=== PATIENT | male | born 1950 ===

== ENCOUNTER 2024-03-09 11:35 | Emergency (ER) | payer OTHER, SELFPAY ==
[2024-03-09] VITALS (8 sets, daily range): BP systolic 129–156; BP diastolic 70–100; PULSE 79–93; RESP 18–22; TEMP 36.5; O2SAT 96–98; BMI 31.8
--- NOTE | ~2024-03-09 | CT_ITS ---
EXAMINATION: CT HEAD WITHOUT IV CONTRAST STROKE CLINICAL INFORMATION: Left-sided weakness. COMPARISON: None. TECHNIQUE: Contiguous axial imaging was performed from the skull base to vertex without intravenous contrast. Sagittal and coronal reformatted images were obtained. This CT examination was performed using dose optimization techniques as appropriate, variously including the following: * Automated exposure control * Adjustment of mA and/or kV according to patient size (this includes techniques or standardized protocols for targeted exams where dose is matched to indication/reason for exam; i.e. extremities or head) Use of iterative reconstruction technique DLP: 892 mGy-cm FINDINGS: No acute osseous or soft tissue abnormality. The mastoid air cells and visualized portions of the paranasal sinuses are well aerated. Parenchymal hypodensity and loss of ochoa-white matter differentiation in the right temporal lobe is concerning for an evolving acute infarct. There is no evidence of acute intracranial hemorrhage. No abnormal mass effect or midline shift is seen. No extra-axial fluid collections are identified. No hydrocephalus. Proportional prominence of the ventricles and sulcal spaces related to volume loss. Confluent periventricular and deep white matter hypoattenuation with asymmetric involvement of the right cerebral hemisphere, is most consistent with severe small vessel ischemic changes. Chronic left thalamic lacunar infarct. CT/CT head for stroke IMPRESSION: 1. Parenchymal hypodensity and loss of ochoa-white matter differentiation in the right temporal lobe is concerning for an evolving acute infarct. No evidence of intracranial hemorrhage. 2. Generalized cerebral volume loss. Confluent supratentorial white matter hypodensity with asymmetric involvement of the right cerebral hemisphere, presumably reflecting sequela of chronic microangiopathy. There is a chronic left thalamic lacunar infarct. Above impression was communicated to Dr Uribe on 03/09/2024 12:03 PM. Electronically signed by: Emmanuel Connors MD 03/09/2024 12:11 PM EDT
--- NOTE | ~2024-03-09 | XR_ITS ---
EXAMINATION: XR CHEST CLINICAL INFORMATION: Stroke COMPARISON: None available. TECHNIQUE: Frontal view of the chest was obtained. FINDINGS: Bilateral low lung volumes. Small bilateral pleural effusions, right greater than left with subjacent atelectasis. Chronic appearing reticular interstitial lung markings, though underlying infectious/inflammatory radiology not excluded. No pneumothorax. Trachea is midline. Cardiomediastinal silhouette is not enlarged. Osseous structures are intact. Soft tissues are unremarkable. XR/XR chest 1V IMPRESSION: 1. Bilateral low lung volumes. 2. Small bilateral pleural effusions, right greater than left with subjacent atelectasis. 3. Chronic appearing reticular and interstitial lung markings, though underlying infectious/inflammatory radiology not excluded. Electronically signed by: Jj Garcia MD 03/09/2024 01:43 PM EDT
--- NOTE | ~2024-03-09 | CT_ITS ---
EXAMINATION: CT ANGIOGRAM HEAD CT ANGIOGRAM NECK CLINICAL INFORMATION: left-sided weakness COMPARISON: Same day noncontrast head CT TECHNIQUE: Initial noncontrast professor of english imaging of the head and neck was performed. Comparison is made with noncontrast head CT from earlier today. Test bolus sequences followed by intravenous administration 70 mL of Omnipaque 350. Helical imaging was performed in the axial plane from the aortic arch to the skull vertex. Delayed postcontrast imaging of the head was also performed. The data was processed at the office technologist workstation for generation of MIP sequences. Angled MIPs and volume rendered reformatted images were also generated at an offline 3D workstation. Stenoses are assessed in accordance with NASCET criteria unless otherwise indicated. DLP: 18 23 mGy-cm This CT examination was performed using dose optimization techniques as appropriate, variously including the following: *Automated exposure control. *Adjustment of mA and/or kV according to patient size (this includes techniques or standardized protocols for targeted exams where dose is matched to indication/reason for exam; i.e. extremities or head). *Use of iterative reconstruction technique. FINDINGS: CT Head: Please refer to report from immediate preceding noncontrast head CT for full details. Redemonstration of suspected evolving acute infarct right temporal lobe. No abnormal intracranial enhancement. CT Neck: The thyroid gland and remaining cervical soft tissues are within normal limits. Multilevel cervical spondylosis. CT Upper Chest: Evaluation of the lung apices is limited due to motion artifact but there is suggestion of underlying pulmonary fibrosis with subpleural reticulation and honeycombing. Dense sclerosis of the head of the left sixth rib is nonspecific but most likely represents a bone island. Prominent but nonpathologically enlarged superior mediastinal lymph nodes. Coronary artery calcifications. Neck CTA: Aortic Arch: Normal contour and caliber. Two vessel branching pattern of the arch with left common carotid artery arising from the brachiocephalic trunk. Great Vessel Origins: No significant stenosis of the branch origins. Right Common Carotid Artery: Fibrofatty atherosclerotic plaque involving the mid right common carotid artery with less than 50% luminal stenosis. Cervical Right Internal Carotid Artery: Mild calcific atherosclerotic disease of the carotid bulb and proximal internal carotid artery without flow-limiting stenosis. Left Common Carotid Artery: No focal stenosis or occlusion. Cervical Left Internal Carotid Artery: Fibrofatty predominantly macroscopic plaque at the left carotid bifurcation and proximal left ICA with less than 50% proximal ICA narrowing Cervical Right Vertebral Artery: No focal stenosis or occlusion. Cervical Left Vertebral Artery: No focal stenosis or occlusion. Brain CTA: Intracranial Internal Carotid Arteries: Calcific atherosclerotic disease of the intracranial internal carotid arteries without occlusion or flow-limiting stenosis. Right Anterior Cerebral Artery: Normal A1 segment. Normal opacification of the distal ISA segments. Left Anterior Cerebral Artery: Normal A1 segment. Normal opacification of the distal ISA segments. Anterior Communicating Artery: Normal. Right Middle Cerebral Artery: The right M1 origin is patent with normal appearance of the proximal and mid M1 segment. There is a near occlusive stenosis of the distal right M1 segment with immediate vessel reconstitution of the M2 branches and distal MCA complex. The distal right MCA complex remains patent appears diffusely diminutive in caliber throughout with poor contrast filling. Left Middle Cerebral Artery: Mild narrowing of the M1 segment. Normal arborization of the distal segments. Right Vertebral Artery: Normal V4 segment. Left Vertebral Artery: Moderate to high-grade focal stenosis of the distal intradural left vertebral artery at the vertebrobasilar junction. Basilar Artery: No high-grade stenosis or occlusion. Mild stenosis of the distal basilar artery just proximal to the basilar tip. Normal appearance of the proximal superior cerebellar arteries. There is junctional prominence of the basilar tip without discrete saccular aneurysm formation. Right Posterior Cerebral Artery: Normal P1 segment. Normal opacification of the distal PACKAGE LINE OPERATOR segments. Left Posterior Cerebral Artery: Mild to moderate stenosis of the left P1 origin. Normal opacification of the distal PACKAGE LINE OPERATOR segments. Normal opacification of the superior sagittal, straight, transverse, and sigmoid sinuses. CT/CT angio head neck stroke IMPRESSION: 1. High-grade near occlusive stenosis of the distal right M1 segment with immediate vessel reconstitution but diffusely diminished caliber and poor contrast filling of the right MCA complex. 2. Moderate to high-grade focal stenosis of the intradural left vertebral artery at the vertebrobasilar junction. 3. No significant arterial narrowing in the neck. 4. Suggestion of pulmonary fibrosis at the lung apices with subpleural reticulation and honeycombing. Impression #[address] Uribe on 03/09/2024 12:03 PM. Electronically signed by: Emmanuel Connors MD 03/09/2024 12:30 PM EDT
--- NOTE | 2024-03-09 11:42 | ECG_ITS ---
Test Reason : STROKE Blood Pressure : / mmHG Vent. Rate : 090 BPM Atrial Rate : 090 BPM P-R Int : 144 ms QRS Dur : 086 ms QT Int : 386 ms P-R-T Axes : 012 -28 067 degrees QTc Int : 472 ms Sinus rhythm with marked sinus arrhythmia with occasional Premature ventricular complexes Inferior infarct , age undetermined Abnormal ECG No previous ECGs available Referred By: Fina Uribe Electronically Signed By:ANUP ALVAREZ
[2024-03-09] MEDS: iohexoL 350 MG/ML 100 ML INFUS..BTL IV (11:55)
[2024-03-09 12:03] LABS: Prothrombin Time Whole Bld POC 15.1 sec (11.1-13.5); ~PT, ~INR - Anti Coag Clinic 1.3 (0.9-1.1)
[2024-03-09 12:06] LABS: Glucose, Whole Blood 163 mg/dL (60-115)
--- NOTE | 2024-03-09 12:08 | PC.NURSE ---
Maria Teresa at [facility] saw patient at 9:30am to give oxycodone. baseline. was ableto suqeeze ith left hand 20 reps for therapy.
[2024-03-09 12:09] LABS: Basophils Absolute Auto 0.1 X10*3/uL (0.0-0.2); Basophils Percent Auto 0.2 % (0-2); Eosinophils Absolute Auto 0.1 X10*3/uL (0.0-0.4); Eosinophils Percent Auto 0.4 % (0-4); Hematocrit 40.8 % (42.0-52.0); Hemoglobin 13.8 g/dl (14.0-18.0); Imm Gran Abs Auto 0.25 X10*3/uL (0.00-0.03); Lymphocytes Absolute Auto 2.8 X10*3/uL (1.2-4.9); MANUAL DIFF FLAG SCAN; Mean Corpuscular HGB Conc 33.8 g/dl (31.0-36.0); Mean Corpuscular Hemoglobin 30.5 pg (27.0-33.0); Mean Corpuscular Volume 90.1 fL (80.0-98.0); Mean Platelet Volume 12.2 fL (9.4-12.4); Monocytes Absolute Auto 1.5 X10*3/uL (0.1-1.2); Monocytes Percent Auto 5.8 % (2-11); Neutrophils Absolute Auto 20.7 x10*3/uL (2.0-8.3); Neutrophils Percent Auto 81.6 % (45-73); Platelet Count 243 X10*3/uL (160-400); Red Blood Count 4.53 X10*6/uL (4.60-5.80); SCAN SMEAR FLAG 1; White Blood Count 25.4 X10*3/uL (4.8-10.8)
[2024-03-09 12:15] LABS: INTERNATIONAL NORM RATIO 1.1 (0.9-1.1); Prothrombin Time 13.6 SEC (11.1-13.3)
[2024-03-09 12:18] LABS: Partial Thromboplastin Time 30.7 SEC (26.0-36.8)
--- NOTE | 2024-03-09 12:20 | PC.NURSE ---
TNK is mixed at Dr Lofton's request but now held per Doc Elmogy d/t info from Daughter who is at bedside. PT has no ability to move LUE and LLE. speech is muffled but mostly able to understand. left isded droop noted. very dry tongue and mucous membranes. daughter states previous stroke was feb 26
[2024-03-09 12:24] LABS: Alanine Aminotransferase 12 U/L (0-40); Albumin Level 2.9 g/dL (3.5-5.0); Alkaline Phosphatase 60 U/L (39-117); Anion Gap 14 (12-20); Aspartate Amino Transferase 17 U/L (5-37); Bilirubin Direct 0.4 mg/dL (0.0-0.5); Bilirubin Total 0.9 mg/dL (0.0-1.0); Blood Urea Nitrogen 119 mg/dL (9-16); Calcium 8.6 mg/dL (8.4-10.2); Carbon Dioxide 23 mmol/L (22-29); Chloride 114 mmol/L (96-108); Estimated Glomerular Filt Rate 16; Glucose Random 171 mg/dL (60-115); Lipase 105 U/L (8-78); Potassium 4.2 mmol/L (3.3-5.1); Sodium 147 mmol/L (135-145); Total Protein 6.6 g/dL (6.5-8.0)
[2024-03-09 12:25] LABS: SLIDE REVIEW VERIFIED
[2024-03-09] MEDS: Tenecteplase 50 MG/10 ML KIT 22 MG IVPUSH (12:27)
[2024-03-09 12:29] LABS: B Type Natriuretic Peptide 11 pg/mL (<100)
[2024-03-09 12:31] LABS: Troponin-I High Sensitivity 11.7 ng/L (<3.5-35.0)
--- NOTE | 2024-03-09 12:32 | ED_ITS ---
HPI - Neuro Symptoms/Deficit General Chief Complaint: Stroke Stated Complaint: STROKE L WEAK,+PLAVIX,LKWT 10:45 PER EMS Time Seen by Provider: 03/09/24 11:41 Source: patient, family ( Daughter) and EMS Mode of arrival: EMS Limitations: no limitations History of Present Illness ED Provider: DR. Uribe HPI Narrative: 73-year-old male came in from rehab for left hemiparesis patient was called as a stroke protocol. Patient last known well was 09:30, on arrival patient has a complete left hemiparesis with slurred speech and partial right gaze. patient is not taking anticoagulation. Daughter at the bedside stated that patient had stroke 5-6 days ago at [facility] and was resolved without medical intervention and patient was discharged to rehab at his normal baseline until today 9:30 when he started have the current symptoms. Related Data Allergies Allergy/AdvReac Type Severity Reaction Status Date / Time No Known Allergies Allergy Verified 03/09/24 12:35 Review of Systems 2 Review of Systems: All other systems are reviewed and are negative Constitutional: Reports as per HPI and Reports no additional constitutional complaints Eyes: Reports as per HPI and Reports no additional eye complaints Reports system reviewed and no additional complaints, except as documented Cardiovascular: Reports as per HPI and Reports no additional cardiovascular complaints Respiratory: Reports as per HPI and Reports no additional respiratory complaints Gastrointestinal: Reports as per HPI and Reports no additional gastrointestinal complaints Genitourinary: Reports no additional female genitourinary complaints Musculoskeletal: Reports no additional musculoskeletal complaints Skin/Breast: Reports system reviewed and no additional complaints, except as docu Psychiatric: Reports no additional psychiatric complaints Endocrine: Reports no additional endocrine complaints Hematologic/Lymphatic: Reports no additional hematologic/lymphatic complaints Allergic/Immunologic: Reports no additional allergic/immunologic complaints Reports system reviewed and no additional complaints, except as documented and Reports Abnormal speech present [facility] Social History Social History Smoked in Last 30 Days: No Use of substances other than those prescribed or required for medical reasons: No Advance Directives: No Advance Directives Information Provided: No Physical Exam 2 Vital Signs: Vital Signs: Last Vital Signs Temp 97.7 F 03/09/24 13:00 Pulse 79 03/09/24 13:15 Resp 18 03/09/24 13:15 BP 155/92 H 03/09/24 13:15 Pulse Ox 96 03/09/24 13:15 O2 Del Method Room Air 03/09/24 13:15 BMI result Body Mass Index 31.8 Vital signs have been reviewed and appear to be correct. Blood pressure elevated. Heart rate normal. Respiratory rate normal. Temperature normal. Oxygen saturation normal. Appearance: Alert. Oriented X3. No acute distress. Head: Normal external exam. Normocephalic. Atraumatic. No Dumont signs noted. No raccoon eyes noted Eyes: PERRLA. EOMI. Conjunctiva and sclera normal. Eyelids normal. ENT: TM's Normal. Pharynx normal. Uvula midline. Moist mucous membranes. No trismus noted. No drooling noted. No muffled voice noted. Neck: Normal inspection. Neck supple. FROM. No adenopathy. Thyroid Normal. No meningeal signs. No neck mass noted. CVS: Normal heart rate and rhythm. Heart sound normal. No murmurs noted. Pulses normal throughout. Respiratory: No respiratory distress. Painless inspiration. Breath sounds normal. No wheezes/rales/rhonchi noted. Chest nontender. No accessory muscle usage noted or decreased air movement noted. Abdomen: Soft and nontender. Bowel sounds normal in all 4 quadrants. No distention noted. No organomegaly noted. No visible injury noted. Back: No CVA tenderness. Full range of motion noted. Skin: Skin warm and dry. Normal skin color. Normal skin turgor. No rashes/lesions/lacerations noted. Extremities: No lower extremity edema. Extremities exhibit normal range of motion. Extremities nontender. Neuro: Awake, oriented x2. Refer to NIH score. Course Reevaluation(s) Reevaluation #1: 73-year-old male was at his normal baseline started to have left hemiparesis at 09:30 seen in our emergency room within the window for thrombolysis, Dr. Lofton was at the bedside evaluating the patient and review his CT agreed to give thrombolysis in the emergency department. I spoke with the daughter at the bedside explain risks and benefits of given thrombolysis addressing all her concerns and questions and daughter agreed to go ahead with the treatment, case was discussed with neuro rolls mill operator Dr. White. who accept the patient to be transferred to [facility] ER for further radiographic studies, the case discussed with Dr. Roque who accepted the patient to [facility] ER. Will arrange for transportation. Daughter was updated with a situation. Time: 12:50 Reevaluation #2: re-evaluation after TNK administration slight improvement in the right gaze able to look to the left but no improvement in the hemiparesis or aphasia. Time: 13:00 Reevaluation #3: patient has been transport to [facility] now, no change in his neuro exam. Time: 13:20 Medications Administered Generic Name Dose Route Start Last Admin Trade Name Freq PRN Reason Stop Dose Admin Sodium Chloride 500 mls @ 999 mls/hr 03/09/24 13:00 03/09/24 13:03 Ns IV 03/09/24 13:30 Not Given .Q31M SANTA Sodium Chloride 1,000 mls @ 999 mls/hr 03/09/24 13:00 03/09/24 13:02 Ns IV 03/09/24 14:00 999 mls/hr .Q1H1M ONE Administration Discontinued Medications Generic Name Dose Route Start Last Admin Trade Name Freq PRN Reason Stop Dose Admin Iohexol 100 ml 03/09/24 11:54 03/09/24 11:55 Iohexol 350 Mg/Ml 100 Ml Infus..Btl IV 03/09/24 11:55 70 ml ONCE ONE Administration Tenecteplase 22 mg 03/09/24 12:11 03/09/24 12:27 Tenecteplase 50 Mg/10 Ml Kit IVPUSH 03/09/24 12:12 22 mg ONCE ONE Administration Medical Decision Making Differential Diagnosis Differential Diagnoses: The differential diagnosis associated with the presentation includes ( Acute ischemic stroke, acute hemorrhagic stroke, electrolyte derangement, severe anemia.) Admission/Observation Consideration of admission/observation: Escalation of care including admission/observation considered Consult Healthcare Provider Management of the patient was discussed with: Supervising Deputy ( Dr. Lofton) Lab Data MDM Lab Attestation statement: I reviewed the patient's lab results. 03/09/24 12:03 03/09/24 12:03 Labs: Lab Results 03/09/24 03/09/24 03/09/24 Range/Units 11:53 12:01 12:03 WBC 25.4 H (4.8-10.8) X10*3/uL RBC 4.53 L (4.60-5.80) X10*6/uL Hgb 13.8 L (14.0-18.0) g/dl Hct 40.8 L (42.0-52.0) % MCV 90.1 (80.0-98.0) fL MCH 30.5 (27.0-33.0) pg MCHC 33.8 (31.0-36.0) g/dl RDW 14.0 (11.0-16.0) % Plt Count 243 (160-400) X10*3/uL MPV 12.2 (9.4-12.4) fL Immature Gran % (Auto) 1.0 H (0.0-0.4) % Neut % (Auto) 81.6 H (45-73) % Lymph % (Auto) 11.0 L (20-40) % [place] % (Auto) 5.8 (2-11) % Eos % (Auto) 0.4 (0-4) % Baso % (Auto) 0.2 (0-2) % Lymph # (Auto) 2.8 (1.2-4.9) X10*3/uL [place] # (Auto) 1.5 H (0.1-1.2) X10*3/uL Eos # (Auto) 0.1 (0.0-0.4) X10*3/uL Baso # (Auto) 0.1 (0.0-0.2) X10*3/uL Abs Immat Gran (auto) 0.25 H (0.00-0.03) X10*3/uL Absolute Neuts (auto) 20.7 H (2.0-8.3) x10*3/uL Absolute Nucleated RBC 0.000 (0.0-0.012) X10*3/uL Nucleated RBC % (auto) 0.0 (0.0-0.2) /100WBC Smear Tech's Comments VERIFIED PT 13.6 H (11.1-13.3) SEC Whole Blood PT 15.1 H (11.1-13.5) sec INR 1.1 (0.9-1.1) Whole Blood INR 1.3 H (0.9-1.1) APTT 30.7 (26.0-36.8) SEC Sodium 147 H (135-145) mmol/L Potassium 4.2 (3.3-5.1) mmol/L Chloride 114 H (96-108) mmol/L Carbon Dioxide 23 (22-29) mmol/L Anion Gap 14 (12-20) BUN 119 H (9-16) mg/dL Creatinine 3.82 H (0.5-1.4) mg/dL Estim Creat Clear Calc TNP Estimated GFR 16 POC Glucose 163 H (60-115) mg/dL Random Glucose 171 H (60-115) mg/dL Calcium 8.6 (8.4-10.2) mg/dL Total Bilirubin 0.9 (0.0-1.0) mg/dL Direct Bilirubin 0.4 (0.0-0.5) mg/dL AST 17 (5-37) U/L ALT 12 (0-40) U/L Alkaline Phosphatase 60 (39-117) U/L Troponin I High Sens 11.7 (<3.5-35.0) ng/L B-Natriuretic Peptide 11 (<100) pg/mL Total Protein 6.6 (6.5-8.0) g/dL Albumin 2.9 L (3.5-5.0) g/dL Lipase 105 H (8-78) U/L Influenza Type A (PCR) NEGATIVE (Negative) Influenza Type B (PCR) NEGATIVE (Negative) RSV RNA Qual (PCR) NEGATIVE (Negative) SARS-CoV-2 RNA (RT-PCR) POSITIVE A (Negative) Independent Interpretation I performed an independent interpretation of an: CT Scan ( head/ CTA head and neck:1. High-grade near occlusive stenosis of the distal right M1 segment with immediate vessel reconstitution but diffusely diminished caliber and poor contrast filling of the right MCA complex. 2. Moderate to high-grade focal stenosis of the intradural left vertebral art) Radiology Impression Discussion of test interpretation with radiology: I have reviewed the radiologist's reading. NIH Stroke Scale Internal: Initial- Upon Arrival Time: 12:34 Level of Consciousness: Alert Level of Consciousness Questions: Answers both questions correctly Level of Consciousness Commands: Performs both tasks correctly Best Gaze: Partial gaze palsy Visual: No visual loss Facial Palsy: Normal Motor Arm (Right): No drift Motor Arm (Left): No movement Motor Leg (Right): No drift Motor Leg (Left): No movement Limb Ataxia: Absent Sensory: Mild to moderate sensory loss Best Language: Mild to moderate aphasia Dysarthia: Mild to moderate dysarthria Extinction and Inattention: No abnormality Score: 12 Critical Care Time Critical Care Time Critical Care Time: Yes Total Critical Care Time: 60 Attestation: The patient was critically ill with a high probability of imminent or life- threatening deterioration. I spent greater than 30 minutes of discontinuous time evaluating the patient, delivering critical care at the bedside, discussing evaluating data with consultants. Critical care time does not include time spent performing separately billable procedures or teaching. Time spent performing critical care was 60 minutes. Discharge Plan Discharge Clinical Impression: Cerebrovascular accident, COVID-19 virus infection Patient Disposition: [facility] Transfer Details: Emergency department Print Language: Khmer
--- NOTE | 2024-03-09 12:36 | PC.NURSE ---
daughter says speech is unchanged. facial droop is new.
--- NOTE | 2024-03-09 12:46 | PC.NURSE ---
no neuro changes still alert. follows commands yony to [facility] / plan to transfer to [facility]/ daughter aware
--- NOTE | 2024-03-09 12:50 | PC.NURSE ---
ble to look to the left much better than nat rrival. still less capable to look left than right. unable to move LUE and LLE. denies headache. no active bleeding noted.
[2024-03-09] MEDS: 0.9 % Sodium Chloride 1,000 ML 999 ML IV (13:02)
[2024-03-09 13:09] LABS: Influenza A PCR NEGATIVE (Negative); Influenza B PCR NEGATIVE (Negative); Resp Syncy Virus RNA Qual PCR NEGATIVE (Negative); SARS COV2 PCR INHOUSE POSITIVE (Negative)
--- NOTE | 2024-03-09 13:25 | PC.NURSE ---
Rn to RN krysta Reilly from [facility]
== END 2024-03-09 13:20 | disposition short-term general hospital (02) ==
PROVIDERS: Emergency Provider Emergency Medicine; PCP Physician Assistant Medical
DX: I63.9 Cerebral infarction, unspecified (principal); R47.81 Slurred speech; G81.94 Hemiplegia, unspecified affecting left nondominant side; U07.1 COVID-19
CPT/HCPCS: 0241U; 70450; 70496; 70498; 71045; 80048; 80076; 82947; 83690; 83880; 84484; 85025; 85610; 85730; 93005; 96374; 99284; 99285; J3101; Q9967